=== PATIENT | male | born 1985 | race Caucasian/White ===

== ENCOUNTER 2025-05-22 12:49 | Emergency (ER) | payer OTHER, SELFPAY ==
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
[2025-05-22 12:58] VITALS: BP 152/92; PULSE 95; RESP 18; TEMP 36.7; O2SAT 97; BMI 29.0
--- OUTSIDE RECORDS SUMMARY | 2025-05-22 19:22 | XMS_ITS | Clinical Summary ---
Author Organization [facility] Address [address] [place] [address] Phone Care Team Providers Care Bilingual Hr Generalist Name Role Phone Physician, No Pcp Primary Care Provider Unavaila ble Allergies Active Allergy Reactions Criticality Noted Date Comments Sulfamethoxazole-Trimethoprim Anaphylaxis High 09/16 Medications No known medications Surgical History Surgery Date Site/Laterality Comments SKIN BIOPSY Medical History Medical History Date Comments Drug abuse ([facility] V24, [facility] V28) Social History Tobacco Use Types Packs/Day Years Used Date Smoking Tobacco: Every Day Cigarettes 1 20.7 Started: 09/16/2004 Smokeless Tobacco: Never Tobacco Cessation:Ready to Q uit: Not Asked; Counseling Given: Not Answered Alcohol Use Standard Drinks/Week Comments Never 0 (1 standard drink = 0.6 oz pur e alcohol) Sex and Gender Information Value Date Recorded Sex Assigned at Not on file Legal Sex Male 10:02 AM EST Gender Identity Not on file Sexual Orientation Not on file Last Filed Vital Signs Vital Sign Reading Time Taken Comments Blood Pressure 140/70 10/16/2024 11:54 PM EDT Pulse 97 10/16/2024 11:54 PM EDT Temperature 36.8 C (98.2 F) 10/16/2024 11:54 PM EDT Respiratory Rate 20 10/16/2024 11:54 PM EDT Oxygen Saturation 98% 10/16/2024 11:54 PM EDT Inhaled Oxygen Concentration - - Weight 77.1 kg (170 lb) 10/16/2024 11:54 PM EDT Height 182.9 cm (6') 10/16/2024 11:54 PM EDT Body Mass Index 23.06 10/16/2024 11:54 PM EDT Plan of Treatment Health Maintenance Due Date Last Done Comments DTaP,Tdap,and Td Vaccines (1 - Tdap) 2006 Hepatitis B Vaccines (1 of 3 - 19+ 3-dose series) 2006 Pneumococcal Vaccine: Pediat rics (0 to 5 Years) and At-Risk Patients (6 to 49 Years) (1 of 2 - PCV) 2006 HPV Vaccines (1 - 3-dose SCD M series) 2014 Depression Screening 06/06/2024 Cholesterol Screening (Lipid Panel) 09/16/2024 HIV Screening 09/16/2024 Hepatitis C Screening 09/16/2024 Social Influencers of Health Screening 09/16/2024 COVID-19 Vaccine (1 - 2024-2 6 season) 2025 Influenza Vaccine (#1) 2025 RSV Immunization Adult Patie nts (1 - 1-dose 75+ series) 2062 HIB Vaccines Aged Out No longer eligi ble based on patient's age to complete this topic Hepatitis A Vaccines Aged Out No long er eligible based on patient's age to complete this topic IPV Vaccines Aged Out No longer eligi ble based on patient's age to complete this topic MMR Vaccines Aged Out No longer eligi ble based on patient's age to complete this topic Meningococcal ACWY Vaccine Aged Out N o longer eligible based on patient's age to complete this topic Meningococcal B Vaccine Aged Out No l onger eligible based on patient's age to complete this topic RSV Immunization Patients Un aurora 20 months Aged Out No longer eligible b ased on patient's age to complete this topic Varicella Vaccines Aged Out No longer eligible based on patient's age to complete this topic Insurance MEDICAID - [place] Care Teams Bilingual Hr Generalist Relationship Specialty Start Date End Date Physician, No Pcp PCP - General 09/16/24
== END 2025-05-22 14:46 | disposition home or self-care (01) ==
LOC: HO.ED 14:29
PROVIDERS: Emergency Provider Emergency Medicine Emergency Medical Services
DX: S13.4XXA Sprain of ligaments of cervical spine, initial encounter (principal); M54.50 Low back pain, unspecified; M54.2 Cervicalgia; V43.52XA Car driver injured in collision with other type car in traffic accident, initial encounter; Y93.9 Activity, unspecified; Y92.410 Unspecified street and highway as the place of occurrence of the external cause; Y99.8 Other external cause status
CPT/HCPCS: 72100; 72125; 99281; 99284

== ENCOUNTER → 2025-05-22 12:59 | Outpatient (BNV) | payer OTHER, SELFPAY | PROVIDERS: Emergency Provider Emergency Medicine Emergency Medical Services; Visit Provider Radiology Diagnostic Radiology | DX: M54.2 Cervicalgia (principal); M47.812 Spondylosis without myelopathy or radiculopathy, cervical region; M54.50 Low back pain, unspecified; M47.816 Spondylosis without myelopathy or radiculopathy, lumbar region; V89.2XXA Person injured in unspecified motor-vehicle accident, traffic, initial encounter | CPT/HCPCS: 72100; 72125 ==